=== PATIENT | male | born 1995 | race Caucasian/White ===

== ENCOUNTER 2022-07-09 16:41 | Emergency (ER) | payer BC ==
[2022-07-09] MEDS ORDERED: Sodium Chloride 0.9% 10 ML Syringe FLUSH PRN (17:04)
[2022-07-09] MEDS ORDERED: Sodium Chloride 0.9% 2.5 ML Syringe FLUSH PRN (17:04)
[2022-07-09] MEDS ORDERED: Pantoprazole 40 MG in Sodium Chloride 0.9% 10 ML IVPUSH ONE (17:08)
[2022-07-09 18:28] LABS: CARBON DIOXIDE,CO2 29.2 mmol/L (21.0-32.0); POTASSIUM,K 4.3 mmol/L (3.5-5.1)
== END 2022-07-09 19:56 | disposition home or self-care (01) ==
LOC: MW.ED 16:41
DX: K29.20 Alcoholic gastritis without bleeding (principal)
CPT/HCPCS: 36415; 80053; 81003; 83690; 85025; 96374; 99284; C9113; J3490

== ENCOUNTER 2024-06-12 13:30 | Emergency (ER) | payer BC ==
[2024-06-12] MEDS: Lidocaine 1% with EPINEPHrine 1:200,000 30 ML SDV INJECT ONE (14:32)
== END 2024-06-12 15:17 | disposition home or self-care (01) ==
LOC: MW.ED 13:30
DX: L02.211 Cutaneous abscess of abdominal wall (principal); Z75.8 Other problems related to medical facilities and other health care
CPT/HCPCS: 10060; 99283; J3490